=== PATIENT | female | born 1970 | race African-American/Black ===

== ENCOUNTER 2016-08-14 07:02 | Emergency (ER) | payer OTHER ==
[~2016-08-14] VITALS: Ht 165.1 cm; Wt 47.6 kg
[2016-08-14 08:09] VITALS: BP 133/81
== END 2016-08-14 08:08 | disposition home or self-care (01) ==
LOC: ER 07:03
DX: M79.641 Pain in right hand (principal); F32.9 Major depressive disorder, single episode, unspecified; F17.200 Nicotine dependence, unspecified, uncomplicated
CPT/HCPCS: 73060; 99284; A4606; Z7610

== ENCOUNTER 2016-08-14 11:13 | Emergency (ER) | payer OTHER ==
[~2016-08-14] VITALS: Ht 172.7 cm; Wt 61.2 kg
[2016-08-14] MEDS ORDERED: OLANZAPINE 5 MG TABLET ONE (11:25)
[2016-08-14] MEDS ORDERED: OLANZAPINE 5 MG TABLET PO ONE (11:30)
[2016-08-14] MEDS ORDERED: OLANZAPINE 10 MG VIAL IM ONE ×2 (11:32→12:00)
[2016-08-14] MEDS ORDERED: WATER FOR INJECTION,STERILE 10 ML ONE (11:32)
[2016-08-14 12:46] LABS: BASOPHILS # (AUTO) 0.2 /CMM (0.0-0.2); BASOPHILS % (AUTO) 3.1 % (0.0-2.0); DIFF TOTAL % 100 %; EOSINOPHILS # (AUTO) 0.1 /CMM (0.0-0.7); EOSINOPHILS % (AUTO) 1.2 % (0.0-6.0); HEMATOCRIT 36 % (33-45); HEMOGLOBIN 12.1 g/dL (11.5-14.8); LYMPHOCYTES # (AUTO) 1.6 /CMM (0.8-4.8); LYMPHOCYTES % (AUTO) 23.3 % (20.0-44.0); MEAN CORPUSCULAR HEMOGLOBIN 32 PG (26.0-33.0); MEAN CORPUSCULAR HGB CONC 34 g/dl (31.0-36.0); MEAN CORPUSCULAR VOLUME 95 fL (82-100); MONOCYTES # (AUTO) 0.6 /CMM (0.1-1.30); NEUTROPHILS # (AUTO) 4.5 /CMM (1.8-8.9); NEUTROPHILS % (AUTO) 64.4 % (43.0-81.0); PLATELET COUNT (AUTO) 272 /CMM (150-450); RED BLOOD CELL COUNT(AUTO) 3.74 MIL/uL (4.0-5.2)
[2016-08-14 13:03] LABS: ALANINE AMINOTRANSFERASE 23 U/L (12-78); ALBUMIN 3.8 g/dL (3.4-5.0); ANION GAP 9 (5-14); ASPARTATE AMINOTRANSFERASE 32 U/L (15-37); BILIRUBIN,DIRECT 0.1 mg/dL (0.0-0.2); BILIRUBIN,TOTAL 0.6 mg/dL (0.2-1.0); CALCIUM, SERUM 8.9 mg/dL (8.5-10.1); CARBON DIOXIDE 29 mmol/L (21-32); CHLORIDE 105 mmol/L (98-107); CREATININE 0.7 mg/dL (0.6-1.3); GFR 109 mL/min (>60); GLUCOSE 94 mg/dL (74-106); INDIRECT BILIRUBIN 0.5 mg/dL (0.0-1.1); POTASSIUM 3.5 mmol/L (3.5-5.1); SALICYLATE 2.9 mg/dL (2.8-20.0); SODIUM SERUM 140 mmol/L (136-145); TOTAL PROTEIN, SERUM 7.3 g/dL (6.4-8.2); UREA NITROGEN, BLOOD 12 mg/dL (7-18)
[2016-08-14 13:04] LABS: ACETAMINOPHEN 0 ug/ml (10-30)
[2016-08-14 15:16] LABS: KETONES,URINE Negative (NEGATIVE); LEUKOCYTE ESTERASE ,URINE Trace (NEGATIVE); PH,URINE 6.5 (5.0-8.0)
[2016-08-14 15:27] LABS: CANNABINOID, URINE NEGATIVE (NEGATIVE); PHENCYCLIDINE SCREEN,URINE NEGATIVE (NEGATIVE)
[2016-08-14 15:34] LABS: ADD UA MICROSCOPIC YES
[2016-08-14 17:05] LABS: ADD URINE CULTURE NO
[2016-08-15 01:37] VITALS: BP 128/70
== END 2016-08-15 01:38 | disposition home or self-care (01) ==
LOC: ER 11:14
DX: R45.1 Restlessness and agitation (principal); F29 Unspecified psychosis not due to a substance or known physiological condition; F32.9 Major depressive disorder, single episode, unspecified; F17.200 Nicotine dependence, unspecified, uncomplicated
CPT/HCPCS: 36415; 80048; 80076; 80305; 81001; 85025; 96372; 99291; A4606; G0480; G0481; G0482; J3490; Z7610; 81000-TC; G6038-TC; G6039-TC; G6040-TC